=== PATIENT | male | born 1975 | race African-American/Black ===

== ENCOUNTER 2025-05-07 17:27 | Emergency (ER) | payer MEDICAID ==
[~2025-05-07] VITALS: Ht 193 cm; Wt 170.0 kg
[2025-05-07 17:37] VITALS: O2SAT 98
[2025-05-07] MEDS ORDERED: OFLO5DRO4 RIGHT EAR (19:22)
[2025-05-07 19:36] VITALS: BP 144/89; PULSE 104; RESP 18; TEMP 37.7; O2SAT 96
== END 2025-05-07 19:38 | disposition home or self-care (01) ==
LOC: ER 17:27
DX: H92.01 Otalgia, right ear (principal); H93.11 Tinnitus, right ear; E11.9 Type 2 diabetes mellitus without complications; E78.00 Pure hypercholesterolemia, unspecified; I10 Essential (primary) hypertension; Z98.84 Bariatric surgery status
CPT/HCPCS: 99283